=== PATIENT | male | born 1970 | race Caucasian/White ===

== ENCOUNTER 2020-03-01 22:25 | Emergency (ER) | payer BC ==
[~2020-03-01] VITALS: Ht 195.6 cm; Wt 106.6 kg
[2020-03-01] MEDS ORDERED: VITAMIN D310 MC4 PO (22:40)
[2020-03-01] MEDS ORDERED: EMERGEN-C 500500 MG PO (22:40)
[2020-03-01] MEDS ORDERED: LIPITOR10 MG PO (22:40)
[2020-03-01 22:55] VITALS: BP 162/84
== END 2020-03-01 22:56 | disposition home or self-care (01) ==
LOC: M.ERS 22:25
DX: S61.216A Laceration without foreign body of right little finger without damage to nail, initial encounter (principal); Z79.899 Other long term (current) drug therapy; W45.8XXA Other foreign body or object entering through skin, initial encounter; Y93.89 Activity, other specified; Y92.89 Other specified places as the place of occurrence of the external cause; Y99.8 Other external cause status